=== PATIENT | female | born 1950 | race Caucasian/White ===

== ENCOUNTER 2019-07-31 04:58 | Inpatient (IN) ==
--- NOTE | 2019-05-29 16:23 | PAT Medication Instructions ---
Medication Instructions Date of Service May 29, 2019 Home Medications aspirin 81 mg PO 3XWK atenolol 50 mg PO QAM atorvastatin 10 mg PO QAM clotrimazole-betamethasone [Lotrisone] 1 applic TOPICAL QAM conjugated estrogens [Premarin] 0.625 mg VAGINAL 3XWK levothyroxine 100 mcg PO QAM oescljmxeovj-momtdavt-wiehjy [Multivitamin 50 Plus] 1 tab PO QAM naproxen sodium [Aleve] 220 mg PO QAM omeprazole 20 mg PO QAM PRN triamcinolone acetonide [Nasacort] 2 spray INTRANASAL QPM triamterene-hydrochlorothiazid 1 tab PO QAM Continue as directed aspirin 81 mg PO 3XWK ASK your surgeon for instructions naproxen sodium [Aleve] 220 mg PO QAM STOP taking 24 hours before surgery clotrimazole-betamethasone [Lotrisone] 1 applic TOPICAL QAM conjugated estrogens [Premarin] 0.625 mg VAGINAL 3XWK DO NOT take the morning of surgery Multivitamin 50 Plus 1 tab PO QAM triamterene-hydrochlorothiazid 1 tab PO QAM Take morning of surgery With a small sip of water, OTHERWISE NOTHING TO EAT OR DRINK AFTER MIDNIGHT: atenolol 50 mg PO QAM atorvastatin 10 mg PO QAM levothyroxine 100 mcg PO QAM omeprazole 20 mg PO QAM PRN (if needed) Take evening before surgery triamcinolone acetonide [Nasacort] 2 spray INTRANASAL QPM Other Notes If you have any questions please call us at [phone] or [phone] or [phone] or [phone]
--- NOTE | 2019-05-30 11:27 | Anesthesiology Consultation ---
Date of Service May 30, 2019 Assessment & Plan (1) Encounter for pre-operative examination: Chart Review Chart Review: Acceptable Risk for Surgery (pending preop labs, EKG, CXR) and Patient seen in Pre Admission Testing Teaching & Discussion Pre-Anesthesia Teaching/Discussion Notes: Instructed NPO after midnight before surgery,except medications with 15 cc of water. Medication instructions provided according to the PAT guidelines. History Surgery Operation Date: 07/31/19 12:30 Proposed Procedures p Left Unicompartment Knee Arthroplasty - Alejandro Lozoya DO Height/Weight Height: 5 ft 2.5 in Weight: 60.8 kg Allergies Allergy/AdvReac Type Severity Reaction Status Date / Time Sulfa (Sulfonamide Allergy Unknown RASH Verified 05/24/19 10:20 Antibiotics) Medications Home Medications Medication Instructions Recorded Confirmed Last Taken aspirin 81 mg PO 3XWK 05/24/19 05/24/19 Unknown atenolol 50 mg PO QAM 05/24/19 05/24/19 Unknown atorvastatin 10 mg PO QAM 05/24/19 05/24/19 Unknown clotrimazole-betamethasone 1 applic TOPICAL QAM 05/24/19 05/24/19 Unknown [Lotrisone] conjugated estrogens [Premarin] 0.625 mg VAGINAL 3XWK 05/24/19 05/24/19 Unknown levothyroxine 100 mcg PO QAM 05/24/19 05/24/19 Unknown cjtjgxrwjaue-nxvymlzk-jtuoyk 1 tab PO QAM 05/24/19 05/24/19 Unknown [Multivitamin 50 Plus] naproxen sodium [Aleve] 220 mg PO QAM 05/24/19 05/24/19 Unknown omeprazole 20 mg PO QAM PRN 05/24/19 05/24/19 Unknown triamcinolone acetonide [Nasacort] 2 spray INTRANASAL QPM 05/24/19 05/24/19 Unknown triamterene-hydrochlorothiazid 1 tab PO QAM 05/24/19 05/24/19 Unknown Past Medical History Medical History GERD (gastroesophageal reflux disease) controlled HTN (hypertension) Hearing deficit [place] History of liver injury r/t medication (Ibuprofen); now resolved History of pulmonary embolism 1978 during (AC x short period); no issues since Hypothyroidism Osteoarthritis Temporomandibular joint disorder jaw "clicking" Exercise / Class Metabolic Activity II 4-5 Yardwork/Stairs/Walk up hill Past Surgical History Surgical History History of D&C MULT History of colonoscopy History of esophagogastroduodenoscopy (EGD) History of liver biopsy History of removal of cyst History of tonsillectomy and adenoidectomy Status post right partial knee replacement Past Anesthesia History No Hx of Anesthesia Complications and No Family Hx of Anesthesia Complications History of PONV No Hx of PONV and No Hx of Motion Sickness Social History Smoking Status: Never smoker Do You Dip or Chew Tobacco: No Hx Alcohol Use: No Hx Substance Use: No substance use type: does not use Review of Systems Reflux controlled. Patient denies chest pain, shortness of breath, dyspnea on exertion, cough, wheezing, palpitations. Physical Exam Vital Signs VITALS BP 116/76 P 52 (chronic bradycardia; asymptomatic; on atenolol) TEMP 97.2 SP02 93%RA RESP 18 PHYSICAL Full neck and c-spine range of motion. Full TMJ range of motion. TMD 2.5 finger breaths Mallampati Score 2 Dentition: intact, caps on molars Lungs: clear throughout to auscultation Cardiac: regular rate and rhythm, no murmurs noted Spine: normal Carotid arteries: negative bruit Extremities: no edema
--- NOTE | 2019-05-30 12:10 | XRay Report ---
XR chest Pre-admission PA/Lat CLINICAL HISTORY: PAT preoperative evaluation COMPARISON STUDY: 11/19/2015 FINDINGS: The bones soft tissues and hemidiaphragms are normal. The cardiomediastinal silhouette is n ormal. The lungs are clear. The pulmonary vasculature is normal. IMPRESSION: Negative chest. The above report was generated using voice recognition software. It may contain grammatical, syntax or spelling errors. Electronically signed by: Tim Lim M.D. 05/30/2019 12:08 PM
[2019-05-30 13:13] LABS: Basophils # (auto) 0.02 K/uL (0-0.2); Basophils % (auto) 0.4 %; Eosinophils % (auto) 1.9 %; Hemoglobin 15.2 g/dL (12.0-16.0); Immature Granulocytes # (auto) 0.01 K/uL (0.00-0.02); Immature Granulocytes % (auto) 0.2 %; Lymphocytes # (auto) 1.53 K/uL (1.2-3.4); Lymphocytes % (auto) 29.4 %; Mean Corpuscular Hgb Conc 34.5 g/dL (32-36); Mean Corpuscular Volume 95.4 fL (80-100); Mean Platelet Volume 12.2 fL (7.4-10.4); Monocytes # (auto) 0.44 K/uL (0.11-0.59); Monocytes % (auto) 8.4 %; Neutrophils # (auto) 3.11 K/uL (1.4-6.5); Neutrophils % (auto) 59.7 %; Platelet Count 192 K/uL (130-400); RDW Coefficient of Variation 13.1 % (11.5-14.5); RDW Standard Deviation 45.3 fL (36.4-46.3); Red Blood Count 4.61 M/uL (4.2-5.4); White Blood Count 5.21 K/uL (4.8-10.8)
[2019-05-30 13:22] LABS: Calcium 9.8 mg/dl (8.5-10.1); Creatinine Clr Calc Pharmacy 44.8 ml/min; Est GFR (Non-African American) 58.7; Potassium 4.2 mmol/L (3.5-5.1)
[2019-05-30 13:23] LABS: Partial Thromboplastin Ratio 0.9; Partial Thromboplastin Time 25.4 Seconds (21.0-31.0); Prothrombin Time 10.5 Seconds (9.0-12.0)
--- NOTE | 2019-07-30 07:32 | History & Physical Report ---
Date of Service July 30, 2019 Assessment & Plan (1) Osteoarthritis of left knee: We will proceed with a left unicompartmental knee arthroplasty. Postoperatively she will be placed on aspirin for DVT prophylaxis. She will be kept overnight in the hospital for postop medical management. She plans to use [employer] upon discharge. Present on Admission?: Yes History of Present Illness Chief Complaint: Primary osteoarthritis of the left knee Primary Care Provider: Lala Warner DO Deshpande is a pleasant 68-year-old female who is been dealing with chronic increasing left knee pain. I did a right unicompartmental knee arthroplasty on her in 2014. She has done very well with that. Unfortunately she is having more left knee pain. X-rays and clinical examination have been diagnostic for medial compartmental arthritis of the left knee. After failing conservative treatment, she has elected to proceed with a left unicompartmental knee arthroplasty. Allergies Allergy/AdvReac Type Severity Reaction Status Date / Time nickel Allergy Mild RASH TO Verified 07/27/19 14:55 SKIN WITH METAL EARINGS Sulfa (Sulfonamide Allergy Mild RASH Verified 07/27/19 14:55 Antibiotics) Home Medications Home Medications Medication Instructions Recorded Confirmed Type aspirin 81 mg PO 3XWK 05/24/19 07/27/19 History atenolol 50 mg PO QAM 05/24/19 07/27/19 History atorvastatin 10 mg PO QAM 05/24/19 07/27/19 History clotrimazole-betamethasone 1 applic TOPICAL QAM 05/24/19 07/27/19 History [Lotrisone] conjugated estrogens [Premarin] 0.625 mg VAGINAL WK 05/24/19 07/27/19 History levothyroxine 100 mcg PO QAM 05/24/19 07/27/19 History ectyghdlpjnz-btkcebna-eykjsh 1 tab PO QAM 05/24/19 07/27/19 History [Multivitamin 50 Plus] naproxen sodium [Aleve] 220 mg PO QAM 05/24/19 07/27/19 History omeprazole 20 mg PO QAM PRN 05/24/19 07/27/19 History triamcinolone acetonide [Nasacort] 2 spray INTRANASAL QPM 05/24/19 07/27/19 History triamterene-hydrochlorothiazid 1 tab PO QAM 05/24/19 07/27/19 History hydroxychloroquine [Plaquenil] 200 mg PO UD 07/27/19 07/27/19 History Past Med/Surg History Medical History GERD (gastroesophageal reflux disease) controlled HTN (hypertension) Hearing deficit [place] History of liver injury r/t medication (Ibuprofen); now resolved History of pulmonary embolism 1978 during (AC x short period); no issues since Hypothyroidism Osteoarthritis Temporomandibular joint disorder jaw "clicking" Surgical History History of D&C MULT History of colonoscopy History of esophagogastroduodenoscopy (EGD) History of liver biopsy History of removal of cyst History of tonsillectomy and adenoidectomy Status post right partial knee replacement Family History Other No significant family history Social History Preferred Language: Macedonian Communication Ability: Effective Rewriter Required: No Beliefs That Will Affect Care: None Current Living Situation: Spouse Current Living Situation Comment: MOTHER LIVES W/ PT Feels Safe at Home: Yes Smoking Status: Never smoker Second Hand Exposure: No ; Hx Alcohol Use: No Hx Substance Use: No Review of Systems All systems reviewed & are unremarkable except as noted in HPI & below Physical Exam Constitutional: WD/WN, vitals as above Eyes: PERRL, conjunctivae normal, anicteric sclerae ENMT: external ear and nose normal, oropharynx normal Neck: trachea midline, no thyromegaly Respiratory: normal respiratory effort Cardiovascular: RRR, no murmur, no edema Gastrointestinal (Abdomen): normal bowel sounds, soft, nontender, no hepatosplenomegaly Musculoskeletal: On physical examination of the left knee there is a trace effusion. There is near full range of motion and no evidence of instability. There is significant tenderness palpation along the medial and lateral joint lines and over the distal femoral condyles. Psychiatric: A+Ox3, euthymic affect Results & Data Diagnostic Findings Radiographs of the left knee demonstrate advanced osteoarthritis with joint space narrowing osteophyte formation and csxx-kb-kvas articulation mostly involving the medial compartment.
[2019-07-31] MEDS ORDERED: TRANEXAMIC ACID 1,000 MG **IV Pre-op IV SCH (06:00)
[2019-07-31] MEDS ORDERED: CEFAZOLIN 1000MG 1,000 MG/7.5 ML SYR IV SCH (06:00)
[2019-07-31] MEDS ORDERED: ROPIVACAINE 0.5% HCL/PF 150 MG, BUPIVACAINE 0.5% MPF 30 ML, EPINEPHrine 30MG/30ML (OR U... INSTIL SCH (06:00)
[2019-07-31] MEDS ORDERED: LR 500ML BOLUS, THEN 15ML/HR IV SCH (06:00)
[2019-07-31] MEDS ORDERED: GABAPENTIN 300 MG CAP PO SCH (06:00)
[2019-07-31] MEDS ORDERED: FAMOTIDINE 20 MG TAB PO SCH (06:00)
[2019-07-31] MEDS ORDERED: ACETAMINOPHEN 500 MG TAB PO SCH (06:00)
[2019-07-31] MEDS ORDERED: LR 60ML/HR IV SCH (06:00)
[2019-07-31] MEDS ORDERED: PROPOFOL IV EMULSION 10 MG/ML 20 ML VIAL IV ONE (06:23)
[2019-07-31] MEDS ORDERED: LIDOCAINE HCL 2% 2 ML VIAL/AMP(20MG/ML) INFIL ONE (06:23)
[2019-07-31] MEDS ORDERED: fentaNYL citrate 100 MCG/2 ML VIAL ONE (06:24)
[2019-07-31] MEDS ORDERED: MIDAZOLAM HCL 1 MG/ML 2ML VIAL ONE ×2 (06:24)
[2019-07-31] MEDS ORDERED: TRANEXAMIC ACID 1,000 MG **IV Intra-op IV SCH (06:30)
[2019-07-31] MEDS ORDERED: ORTHO JOINT ANESTHETIC ONE (06:35)
[2019-07-31] MEDS ORDERED: BACITRACIN INJ 50,000 UNIT VIAL ONE (06:35)
--- NOTE | 2019-07-31 06:50 | History & Physical Bridge Note ---
Date of Service July 31, 2019 History & Physical Bridge Note I have examined the patient, reviewed the History & Physical and in the interval since the performance of the History & Physical I have noted the following changes of clinical significance: no changes noted
[2019-07-31] MEDS ORDERED: BUPIVACAINE 0.5 % 5 MG/1 ML PF 10ML VIAL ONE (07:20)
[2019-07-31] MEDS ORDERED: ROPIVACAINE 0.5% 5 MG/ML 30 ML VIAL ONE (07:21)
[2019-07-31] MEDS ORDERED: EPINEPHrine INJ 1 MG/ML AMP ONE (07:21)
--- NOTE | 2019-07-31 08:24 | Operative Report ---
Post Operative Report Pre & Post Diagnosis Operation Date: 07/31/19 07:00 Pre-Op Diagnosis: Left Knee Degenerative Joint Disease Post-Op Diagnosis: Left Knee Degenerative Joint Disease I identified the patient and participated in the time-out.: Yes Procedure Operation Date: 07/31/19 07:00 Actual Procedures p Left Unicompartment Knee Arthroplasty(Left) - Alejandro Lozoya DO Surgeon Alejandro Lozoya DO Brass Finisher Alejandro Beltran PAC Estimated Blood Loss 5 Findings Consistent with Post-Op Diagnosis Specimens Left femoral and tibial bone Complications none Disposition Disposition: Recovery Room Indications Charlee is a pleasant 68-year-old female who presented my office with chronic increasing left knee pain. X-rays and clinical examination were diagnostic for medial compartment arthritis of the left knee. After failing conservative treatment, she elected to proceed with a left unicompartmental knee arthroplasty. Description of Procedure Implants used: I used a [employer] [place] unicompartmental knee arthroplasty system with a size small femur, A tibia, and a size 4 mobile polyethylene bearing. All components were cemented in place with Palacos G cement. The patient arrived [facility] for the above procedure. There were seen in the preoperative holding area and the operative extremity was identified and signed. They were given a preoperative antibiotic, a spinal anesthetic and an adductor nerve block. There were taken back to the operating room and laid on the table in supine position. They were given basic sedation. The operative knee was then prepped and draped in sterile fashion. A timeout was done, and the patient and the operative extremity was properly identified. A midline incision was made from the superior pole of the patella down to the tibial tubercle. Dissection was taken down to the extensor mechanism and a subvastus arthrotomy was used. The medial retinaculum was released and a small portion of the fat pad was excised. The knee was then placed in a leg garcia and the intra-articular portion of the knee was exposed. The medial meniscus was removed. The ACL was intact and the lateral compartment was inspected and there were no signs of any chondral damage. Several sizing spoons were used to measure the distal femur and it measured to be a size small.The tibial saw guide was then placed externally over the shaft of the tibia.A 4 mm G clamp was used to clamp this spoon with the external tibial saw guide. 2 pins were placed. A reciprocating saw was then used to resect the tibia just medial to the apex of the medial tibial spine. An oscillating saw was then used to resect the tibial plateau. The tibial bone was then removed. The tibia measured to be a size A. The trochlea was then exposed. A 4 mm drill was sent down the center of the femoral canal followed by a long intramedullary vikki. A line was then marked in the center of the distal medial femoral condyle. A femoral drill guide was then placed and the IM link was used to connect the intramedullary vikki to the femoral drill guide. A 4 mm drill was used in the upper pole of the drill guide and a 6 mm drill was used in the lower pole of the drill guide.The drill guide was then removed. A posterior resection guide was then placed in the posterior femur was resected. A 0 spigot was then impacted in the 6 mm drill hole. The distal femur was then milled and osteophytes were removed. Femoral and tibial trials were then placed. A size 4 feeler gauge was used to measure the flexion gap in 100 of flexion. A size 1 feeler gauge was used to measure the extension gap in full extension. Trials were then removed and a size 3 spigot was then impacted in the 6 mm hole. The distal femur was once again milled.The anti-impingement guide was then impacted into place and an anterior mill was used to remove anterior bone and create clearance for the front of the bearing. The tibial template was then placed and the keel cut saw was used to resect for the keeled component. Trial components were then placed along with a size 4 mobile- bearing. The knee was brought through a full range of motion and felt to be stable. All trial components were then removed. Surrounding soft tissues were then injected with 50 cc of a pain control cocktail. Drill holes were placed in the distal femur to help with cement integration. The femoral and tibial components were then cemented in place with Palacos G cement. The size 4 mobile-bearing was then snapped into place. The knee was brought through a full range of motion and felt to be stable. Surrounding soft tissues were injected with 100cc of an orthopedic pain control cocktail. The joint was then irrigated with normal saline solution. The tourniquet was deflated and hemostasis was obtained. The extensor mechanism was then closed with #1 Vicryl suture. Skin was closed with 2-0 Vicryl, 3-0V lock suture, and jeannine. A compressive dressing was then placed. The patient was then transferred to a hospital bed and taken to the postanesthesia care unit in stable condition. They tolerated the procedure well. I attest to the content of the Intraoperative Record and any orders documented therein. Any exceptions are noted below.
[2019-07-31] MEDS ORDERED: ePHEDrine sulfate 50 MG/ML AMP IV PRN (08:44)
[2019-07-31] MEDS ORDERED: ATROPINE SULFATE 0.1 MG/ML 10ML SYR IV PRN (08:44)
[2019-07-31] MEDS ORDERED: ONDANSETRON INJ 2 MG/ML 2 ML VIAL IV PRN ×2 (08:44→09:38)
[2019-07-31] MEDS ORDERED: fentaNYL citrate 100 MCG/2 ML VIAL IV PRN (08:44)
[2019-07-31] MEDS ORDERED: HYDROmorphone INJ 1 MG/ML SYRINGE IV PRN (08:44)
--- NOTE | 2019-07-31 09:05 | Anesthesiology Progress Note ---
Date of Service July 31, 2019 Anesthesia Post Procedure Vital Signs Vital Signs: Temp Pulse Resp BP Pulse Ox 07/31/19 05:34 36.5 C 62 20 134/85 99 Transfer of Care Handoff Completed per policy Notes Mental Status: alert / awake / arousable and participated in evaluation Patient Amnestic to Procedure: Yes Nausea / Vomiting: adequately controlled Pain: adequately controlled and see Notes below Airway Patency, RR, SpO2: stable & adequate BP & HR: stable & adequate Hydration State: stable & adequate Anesthetic Complications: no major complications apparent and Pt Satisfied with anesthetic care
--- NOTE | 2019-07-31 09:24 | Anesthesiology Progress Note ---
Date of Service July 31, 2019 Anesthesia Post Procedure Vital Signs Vital Signs: Temp Pulse Pulse Resp BP Pulse Ox 07/31/19 09:10 60 15 117/72 98 07/31/19 09:00 63 16 118/71 98 07/31/19 08:51 36.2 C L 65 16 112/68 99 07/31/19 05:34 36.5 C 62 20 134/85 99 Pain Intensity Left Knee: Pain Intensity: 0 Transfer of Care Handoff Completed per policy Notes Mental Status: alert / awake / arousable and participated in evaluation Patient Amnestic to Procedure: Yes Nausea / Vomiting: adequately controlled Pain: adequately controlled Airway Patency, RR, SpO2: stable & adequate BP & HR: stable & adequate Hydration State: stable & adequate Neuraxial Anesthesia: was administered and sensory block is resolving Anesthetic Complications: no major complications apparent and Pt Satisfied with anesthetic care
--- NOTE | 2019-07-31 09:29 | XRay Report ---
XR knee LT 1 or 2V routine CLINICAL HISTORY: Postoperative evaluation. COMPARISON: Left knee radiographs December 19, 2018. FINDINGS: Alignment of the medial compartment arthroplasty of the left knee is anatomic. No fracture or unexpected radiopaque foreign body. There are skin jeannine. IMPRESSION: Expected findings following medial compartment arthroplasty of the left knee. Electronically signed by: Ezequiel Tubbs M.D. 07/31/2019 9:28 AM
[2019-07-31] MEDS ORDERED: HYDROXYCHLOROQUINE SULFATE 200 MG TAB PO SCH (09:38)
[2019-07-31] MEDS ORDERED: PANTOprazole 40 MG TAB PO PRN (09:38)
[2019-07-31] MEDS ORDERED: METOCLOPRAMIDE HCL INJ 5 MG/ML 2 ML VIAL IV PRN (09:38)
[2019-07-31] MEDS ORDERED: HYDROmorphone INJ 0.5 MG/0.5 ML SYR IV PRN (09:38)
[2019-07-31] MEDS ORDERED: OXYCODONE HCL IR 5 MG TAB (IMMEDIATE RELEASE) PO PRN (09:38)
[2019-07-31] MEDS ORDERED: NALOXONE HCL 0.4 MG/1 ML VIAL/CARP IV PRN (09:38)
[2019-07-31] MEDS ORDERED: MAGNESIUM HYDROXIDE SUSP 30 ML UDC PO PRN (09:38)
[2019-07-31] MEDS ORDERED: SODIUM CHLORIDE 0.9% 1000ML 1,000 ML IV SCH (09:38)
[2019-07-31] MEDS ORDERED: BISACODYL 10 MG SUPP PR PRN (09:38)
[2019-07-31] MEDS: CLOTRIMAZOLE/BETAMETHASONE CR 15 GM TUBE EXT SCH (11:08)
[2019-07-31] MEDS: DOCUSATE SODIUM 100 MG CAP PO SCH ×2 (11:11→20:58)
[2019-07-31] MEDS: MULTIVITAMIN TAB PO SCH (11:12)
[2019-07-31] MEDS: ASPIRIN 81 MG ECTAB PO SCH ×2 (11:12→20:58)
[2019-07-31] MEDS: KETOROLAC TROMETHAMINE 15 MG/ML VIAL IV SCH ×5 (11:13→23:41)
[2019-07-31] MEDS: TRIAMTERENE/HCTZ 37.5/25MG TAB PO SCH (11:31)
[2019-07-31] MEDS: ACETAMINOPHEN 500 MG TAB PO SCH ×2 (13:26→21:00)
[2019-07-31] MEDS: CEFAZOLIN 2000MG 2,000 MG/15 ML SYR IV SCH ×2 (14:39→22:19)
[2019-07-31] MEDS ORDERED: TRIAMCINOLONE ACET NASAL SPRAY 10.8ML BTL SCH (21:00)
[2019-07-31] MEDS ORDERED: SENNA 8.6 MG TAB PO SCH (21:00)
[2019-07-31] MEDS ORDERED: PREMARIN VAG CRM 14 APPLN/30 GM TUBE PV SCH (22:00)
[2019-08-01 03:51] VITALS: O2SAT 98
[2019-08-01] MEDS: ACETAMINOPHEN 500 MG TAB PO SCH (05:10)
[2019-08-01] MEDS: KETOROLAC TROMETHAMINE 15 MG/ML VIAL IV SCH ×2 (05:11→11:11)
[2019-08-01 05:22] LABS: Hematocrit (blood only) 36.3 % (37-47); Hemoglobin 12.9 g/dL (12.0-16.0); Mean Corpuscular Hemoglobin 32.3 pg (25-34); Mean Corpuscular Hgb Conc 35.5 g/dL (32-36); Mean Platelet Volume 10.5 fL (7.4-10.4); Platelet Count 165 K/uL (130-400); RDW Coefficient of Variation 12.2 % (11.5-14.5); RDW Standard Deviation 40.8 fL (36.4-46.3); Red Blood Count 3.99 M/uL (4.2-5.4); White Blood Count 10.63 K/uL (4.8-10.8)
[2019-08-01 05:47] LABS: BUN Creatinine Ratio 17.1 (10-20); Calcium 8.3 mg/dl (8.5-10.1); Creatinine Clr Calc Pharmacy 55.2 ml/min; Est GFR (African American) 85.2; Est GFR (Non-African American) 73.5; Potassium 3.7 mmol/L (3.5-5.1)
[2019-08-01] MEDS ORDERED: LEVOTHYROXINE SODIUM 100 MCG TABLET PO SCH (06:30)
--- NOTE | 2019-08-01 06:41 | Orthopedic Progress Note ---
Date of Service August 01, 2019 Assessment & Plan (1) Osteoarthritis of left knee: Overall she is doing very well. She is not having much pain in the left knee. She is happy with her progress to this point. She will be seen by physical therapy today for ambulation and range of motion exercises. She can be discharged to home later today. She will follow-up with orthopedics in 2 weeks. Present on Admission?: Yes Michael Deshpande was seen and examined at bedside this morning. Overall she is doing very well. She is not having much pain in the left knee. She has already been up and ambulating. She has no complaints. Physical Exam Musculoskeletal: On physical examination of her left knee, her legs in full extension. Her dressing is clean and dry. She is active dorsiflexion and plantarflexion of the left ankle. Sensation is intact. Results & Data Vital Signs (Past 12 Hours) Vital Signs Temp Pulse Resp BP Pulse Ox 08/01/19 03:51 36.8 C 77 16 112/63 98 07/31/19 23:54 36.5 C 71 16 135/76 97 07/31/19 19:40 36.5 C 71 16 125/76 97 Laboratory Results H & H 05/30/19 08/01/19 Range/Units 11:40 05:00 Hgb 15.2 12.9 (12.0-16.0) g/dL Hct 44.0 36.3 L (37-47) % Coagulation 05/30/19 Range/Units 11:40 INR 1.0 (0.9-1.1) Diagnostic Findings Postoperative x-rays of the left knee show the prosthesis to be in anatomic alignment without any evidence of fracture, dislocation, or loosening. PG Care Time/CCT Total # of Minutes Spent Total Time Spent with Patient: Total time spent is greater than 50% in coordination of care (as documented) at patient's floor/unit and/or counseling patient:
--- NOTE | 2019-08-01 06:43 | Discharge Summary ---
Date of Service August 01, 2019 Admission HPI Per Admitting Provider Charlee is a pleasant 68-year-old female who is been dealing with chronic increasing left knee pain. I did a right unicompartmental knee arthroplasty on her in 2014. She has done very well with that. Unfortunately she is having more left knee pain. X-rays and clinical examination have been diagnostic for medial compartmental arthritis of the left knee. After failing conservative treatment, she has elected to proceed with a left unicompartmental knee arthroplasty. Principal Diagnosis Left partial knee arthroplasty Discharge Data Allergies Allergy/AdvReac Type Severity Reaction Status Date / Time nickel Allergy Mild RASH TO Verified 07/31/19 05:42 SKIN WITH METAL EARINGS Sulfa (Sulfonamide Allergy Mild RASH Verified 07/31/19 05:42 Antibiotics) Consultations 07/31/19 09:38 Consult Case Management - Discharge Planning Routine Procedures Performed Operation Date: 07/31/19 07:00 Actual Procedures p Left Unicompartment Knee Arthroplasty(Left) - Alejandro Lozoya DO Ordered Studies 07/31/19 05:00 US - OR guided needle placemen Routine 07/31/19 06:38 US - OR guided needle placemen Routine Hospital Course (1) Osteoarthritis of left knee: On July 31, 2019.arrived at [facility] and underwent a left partial knee arthroplasty without complication. She had a spinal anesthetic and a left adductor nerve block. Postoperatively she was started on aspirin for DVT prophylaxis and discharged to general orthopedic floors. Her hospital course is uneventful. On postop day #1 her H&H was stable and her pain was well controlled. She was able to participate well with physical therapy doing ambulation and range of motion exercises. She was then discharged home. She can follow-up with orthopedics in 2 weeks. Total Time Total Time Spent Total Time Spent (In Minutes): 20 Discharge Plan Discharge Items Patient Disposition: Home - Home Health Services Reason For Visit: Left Knee Degenerative Joint Disease Discharge Diagnosis: Left partial knee arthroplasty Activity: As commented below Non-emergency contact: Surgeon Call non-emergency contact if: your wound has increased redness and your wound has increased drainage Follow-up/Referrals: Lala Warner DO [Primary Care Provider] - Diet: Regular Addtl Attending Provider Instructions: Activity and Therapy Recommendations: * If you are using [facility] then therapy will be provided at your home until they feel you have accomplished all of your goals. * If you are using [facility] then Physical Therapy will be provided until they feel you are ready to start Outpatient Physical Therapy. * If you are not using home therapy then Outpatient Physical Therapy should start about 3-5 days from your day of surgery. Therapy will last about 6-10 weeks * It is important not to put a pillow under your knee when you are relaxing or sleeping. It is just as important to make sure you are getting your knee perfectly straight as it is to regain your knee bend. * You were shown a series of exercises in the hospital. Do these exercises three times each day including the exercises you were shown in physical therapy. * Get up and walk several times each day. For the first four weeks, try not to stand or walk for more than one hour at a time. If you do stand or walk for more than one hour, you will not hurt anything, but your leg will likely swell. * As you feel comfortable, you may change from the walker or crutches to a cane and then to independent walking. Medications: * Narcotic You will likely be sent home from the hospital with a prescription for the narcotic pain medication that worked best throughout your stay. * Aspirin Most patients will be required to take Aspirin 81mg twice a day for 6 weeks after surgery. This is obtained [id number] and a prescription is not necessary. * Other medications may be prescribed for specific circumstances. If you have any questions, please call the office at . * Resume previous home medications unless otherwise instructed TEDs/Elastic Stockings: The white elastic stockings help limit swelling and prevent blood clots from forming in your legs.~ The more you wear them, the more they work. Wear them f or six weeks. Dressing Care: If the incision is not draining then you may leave the jeannine open to air. If there is a little bit of drainage or if the jeannine are getting stuck on your clothing then cover the incision with a dry dressing. The jeannine will be removed at your 2 week follow-up appointment. Showering: You may shower 5 days from the day of surgery. Let the soapy shower water run over the jeannine and pat them dry. Do not scrub or soak the incision. Things To Watch For: * Drainage from the incision site that occurs more than one week after your surgery. * Increased redness at the incision site. * Fever above 102 degrees Fahrenheit. * Unusual chest pain or shortness of breath. * Call [facility] at with any of the above problems Follow-Up Visit: Follow-up with Dr. Lozoya 2-3 weeks after your day of surgery. An appointment was probably scheduled when you signed-up for surgery in the office. If you have any questions call Office Instructions: More detailed instructions as well as Frequently Asked Questions were provided in a folder by our office when you signed-up for surgery. Please review these instructions when you get home. If you have any further questions or concerns, please feel free to call the office at [phone] Pending Studies at Discharge: No Stand-Alone Forms: My [facility], Smoking Cessation Medications and DC Order Prescriptions: New oxycodone 5 mg Tablet 5 mg PO Q4H PRN (Reason: pain) Qty: 30 RF: 0 Continued atorvastatin 10 mg Tablet 10 mg PO QAM RF: 0 levothyroxine 100 mcg Tablet 100 mcg PO QAM RF: 0 Premarin 0.625 mg/gram Cream 0.625 mg VAGINAL WK RF: 0 clotrimazole-betamethasone [Lotrisone] 1-0.05 % Cream 1 applic TOPICAL QAM RF: 0 triamcinolone acetonide [Nasacort] 55 mcg Aerosol,[place] 2 spray INTRANASAL QPM RF: 0 naproxen sodium [Aleve] 220 mg Tablet 220 mg PO QAM RF: 0 triamterene-hydrochlorothiazid 37.5-25 mg Tablet 1 tab PO QAM RF: 0 atenolol 50 mg Tablet 50 mg PO QAM RF: 0 Multivitamin 50 Plus Tablet 1 tab PO QAM RF: 0 omeprazole 20 mg Tablet,Delayed Release (Dr/Ec) 20 mg PO QAM PRN (Reason: GERD) RF: 0 hydroxychloroquine [Plaquenil] 200 mg Tablet 200 mg PO UD RF: 0 Changed aspirin 81 mg Tablet,Delayed Release (Dr/Ec) 81 mg PO BID Qty: 0 RF: 0 Discharge Orders: Discharge Order (Routine); Ordered 08/01/19 Ordered By: Alejandro Lozoya Admission Data Admit Date/Time: 07/31/19 08:53 Attending Provider: Alejandro Lozoya Admit Provider: Alejandro Lozoya Primary Care Provider: Lala Warner
[2019-08-01 07:13] VITALS: TEMP 97.7
--- NOTE | 2019-08-01 08:14 | Anesthesiology Progress Note ---
Date of Service August 01, 2019 Anesthesia Post Procedure Vital Signs Vital Signs: Temp Pulse Pulse Resp BP Pulse Ox 08/01/19 07:09 36.5 C 65 17 134/81 98 08/01/19 03:51 36.8 C 77 16 112/63 98 07/31/19 23:54 36.5 C 71 16 135/76 97 07/31/19 19:40 36.5 C 71 16 125/76 97 07/31/19 15:56 36.3 C L 07/31/19 15:06 35.9 C L 64 16 112/71 98 07/31/19 12:32 66 16 133/83 100 07/31/19 11:34 62 16 125/79 100 07/31/19 10:35 67 16 120/77 99 07/31/19 10:04 59 L 16 109/74 99 07/31/19 09:35 61 18 109/71 100 07/31/19 09:20 36.3 C L 57 L 18 110/76 98 07/31/19 09:10 60 15 117/72 98 07/31/19 09:00 63 16 118/71 98 07/31/19 08:51 36.2 C L 65 16 112/68 99 Pain Intensity Left Knee: Pain Intensity: 0 Notes Mental Status: alert / awake / arousable Nausea / Vomiting: adequately controlled Pain: adequately controlled Airway Patency, RR, SpO2: stable & adequate BP & HR: stable & adequate Hydration State: stable & adequate Neuraxial Anesthesia: was administered and sensory block resolved Anesthetic Complications: no major complications apparent and Pt Satisfied with anesthetic care
[2019-08-01 08:42] VITALS: BP 127/78; PULSE 67
[2019-08-01] MEDS: CLOTRIMAZOLE/BETAMETHASONE CR 15 GM TUBE EXT SCH (08:43)
[2019-08-01] MEDS: DOCUSATE SODIUM 100 MG CAP PO SCH (08:43)
[2019-08-01] MEDS: MULTIVITAMIN TAB PO SCH (08:44)
[2019-08-01] MEDS: TRIAMTERENE/HCTZ 37.5/25MG TAB PO SCH (08:44)
[2019-08-01] MEDS: ASPIRIN 81 MG ECTAB PO SCH (08:44)
[2019-08-01] MEDS ORDERED: ATORVASTATIN 10 MG TAB PO SCH (09:00)
[2019-08-01] MEDS ORDERED: HYDROXYCHLOROQUINE SULFATE 200 MG TAB PO SCH (09:00)
[2019-08-01] MEDS ORDERED: ATENOLOL 50 MG TABLET PO SCH (09:00)
== END 2019-08-01 13:15 | disposition home or self-care (01) | DRG 470 ==
LOC: ASU 04:58 → 3E 08:53